=== PATIENT | male | born 1985 | race Caucasian/White ===

== ENCOUNTER 2018-01-15 18:31 | Emergency (ER) | payer SELFPAY ==
[2018-01-15 18:38] VITALS: BP 136/101
[2018-01-15] MEDS ORDERED: CEPHALEXIN 500 MG CAPSULE PO ONE (19:10)
[2018-01-15] MEDS ORDERED: SULFAMETHOXAZOLE/TRIMETHOPRIM 800-160 MG TABLET PO ONE (19:11)
[2018-01-15] MEDS ORDERED: OXYCODONE-ACETAMINOPHEN 5-325 MG TABLET PO ONE (19:11)
[2018-01-15] MEDS ORDERED: LIDOCAINE 2%/EPINEPHRINE INJ 20 ML VIAL INJ ONE (19:12)
--- NOTE | 2018-01-15 19:28 | ER Document Report ---
HPI - HPI Pain Level: 4 Context: Patient is a 32-year-old male presents emergency room with a chief complaint of left forearm swelling, redness and tenderness. Patient states that he is at work when he felt something burning on his left forearm and since then he has had localized erythema, swelling and tenderness. He denies any active drainage. Denies any history of MRSA. Denies any fevers or chills Past Medical History - Social History Smoking Status: Never Smoker Chew tobacco use (# tins/day): No Frequency of alcohol use: None Drug Abuse: None Family History: Reviewed & Not Pertinent Patient has suicidal ideation: No Patient has homicidal ideation: No Renal/ Medical History: Denies: Hx Peritoneal Dialysis - Immunizations Hx Diphtheria, Pertussis, Tetanus Vaccination: Yes Vertical Provider Document - CONSTITUTIONAL Agree With Documented VS: Yes Notes: PHYSICAL EXAM GENERAL: Alert, interacts well. EXTREMITIES: Moves all 4 extremities spontaneously. No edema, radial and dorsalis pedis pulses 2/4 bilaterally. No cyanosis. Political Consultant strength equal bilaterally NEUROLOGICAL: Alert and oriented x4. Normal speech. PSYCH: Normal affect, normal mood. SKIN: Warm, dry, normal turgor. Patient with a 2 cm fluctuant area with 7 cm surrounding cellulitis with tenderness and induration - INFECTION CONTROL TRAVEL OUTSIDE OF THE [place] IN LAST 30 DAYS: No Course - Re-evaluation Re-evalutation: 01/15/18 20:15 Patient is a 32-year-old male presents with an abscess of left forearm. I&D performed with approximately 5 cc of brown material packing placed. Patient to follow-up in 2-3 days for wound check and initiated on antibiotics. Given strict return precautions stable for discharge home - Vital Signs Vital signs: Temp Pulse Resp BP Pulse Ox 99.0 F 94 18 136/101 H 99 01/15/18 18:37 01/15/18 18:37 01/15/18 18:37 01/15/18 18:37 01/15/18 18:37 Procedures - Incision and Drainage Left Arm Type: Simple Anesthetic type: 1% Lidocaine mL's of anesthetic: 15 Blade size: 11 I&D procedure: Betadine prep applied, Iodoform packing placed, Sterile dressing applied Incision Method: Incision made by scalpel Amount/type of drainage: 5-10cc purulent drainage Discharge - Discharge Clinical Impression: Abscess Condition: Good Disposition: HOME, SELF-CARE Additional Instructions: Please return in 3 days for wound check. ABSCESS: You have an abscess (boil). This a pus-forming infection, usually due to staph. Some boils may be left to drain on their own, but most require lancing. From the time the tender lump first appears, it may be three or four days before the abscess is ready to malachi. Local heat and rest help at this stage of treatment. An antibiotic may prevent spread of the infection. Once the abscess is opened, packing may be placed into it. This is done so pus is not sealed inside by premature closure of the cavity. The packing will be removed at your follow-up visit or you may be advised to remove it yourself at home. Sometimes this packing must be replaced a few times during healing. The wound will heal with surprisingly little scar. Depending on the size and location of an abscess, healing can take one to four weeks. You may shower and wash the area around the incision site two or three times a day. Antibiotics may be prescribed, but are usually not necessary after an abscess has been drained. If you develop fever, chills, worsening pain, or increasing swelling in the area, call the doctor or return immediately. POST INCISION AND DRAINAGE: You have had an incision made to allow drainage of an abscess. The incision must remain open so that pus and debris can drain from the wound. If the abscess cavity is large, packing is placed. This keeps the tissues from collapsing and trapping pus inside, while the body shrinks the cavity. The packing may need to be replaced every day or two. The physician will instruct you on the packing. Keep a bulky dressing over the area. Replace it if it becomes saturated with blood or pus. Do not disturb the packing (if present). You may shower and cleanse the area with gentle soap and warm water two or three times a day. Local warmth may be soothing, and may promote faster healing. Return if you develop high fever or chills, or if you note spreading redness, increasing swelling, or increasing tenderness. MRSA CELLULITIS: You have an infection of your skin and underlying soft tissues called cellulitis. This is due to bacteria, which can enter through any break in the skin, or even through an irritated hair follicle. Untreated, cellulitis will usually worsen and may form an abscess which requires draining. Although many bacterial organisms can cause cellulitis and abscess formations, the most likely bacteria is Methicillin-Resistant Staph Aureus, or MRSA for short. Antibiotics are required. Usually, warm packs or warm soaks, and elevation of the infected area are recommended. You should start getting better within 24 to 36 hours. Most infections respond quickly to the right medication. Follow-up care is important, however, to check for abscess (boil) formation, unsuspected foreign body, or resistant infection. If you develop fever, chills, or if the area of infection is becoming rapidly more swollen or painful, call the doctor at once. ORAL NARCOTIC MEDICATION: You have been given a prescription for pain control. This medication is a narcotic. It's best taken with food, as nausea can result if taken on an empty stomach. Don't operate machinery or drive within six hours of taking this medication. Do not combine this medicine with alcohol, or with any medication which can cause sedation (such as cold tablets or sleeping pills) unless you get permission from the physician. Narcotics tend to cause constipation. If possible, drink plenty of fluids and eat a diet high in fiber and fruits. CEPHALEXIN: The antibiotic you've been prescribed is a member of the cephalosporin class. This type of antibiotic covers a wide variety of infections, including those of the skin, lungs, and urinary tract. It's useful for staph infections. This antibiotic is slightly similar to the penicillin family. In rare cases , a person who is allergic to penicillin will also be allergic to this medication. If you have had a severe allergic reaction to penicillin, and have not taken this antibiotic since that time, notify your doctor. Antibiotics which cover many germs ("broad spectrum" antibiotics) are more likely to cause diarrhea or "yeast" infections. Women prone to vaginal yeast problems may suffer an attack after taking this antibiotic. In infants, oral thrush (white spots "stuck" on the cheek) or yeast diaper rash may result. See your doctor if these problems occur. Call at once if you develop itching, hives , shortness of breath, or lightheadedness. TRIMETHOPRIM-SULFA: You have been given a prescription for trimethoprim-sulfa (TMS, Septra, Bactrim). This is a combination antibiotic of the sulfa class, often used for urinary tract infections, middle ear infections, bronchitis, shigella intestinal infection, and Pneumocystis pneumonia. TMS is usually well-tolerated. Occasional side effects include nausea and decreased appetite. Septra is not recommended for infants less than two months of age. Do not take this medication if you have experienced severe side effects or allergy to sulfa medicine. You should stop this medicine at once and contact your physician if you develop any rash, joint pain, shortness of breath, bruising, or jaundice ( yellow color in the skin), or if you develop any other new or unusual symptoms. FOLLOW-UP CARE: Most simple abscesses will not require a follow up visit. If you had packing placed in the abscess, remove it as instructed by the physician. If you have been referred to a physician for follow-up care, call the physicians office for an appointment as you were instructed or within the next two days. If you experience worsening or a significant change in your symptoms, return to the Emergency Department at any time for re-evaluation. Prescriptions: Cephalexin Monohydrate [Keflex 500 mg Capsule] 500 mg PO QID #20 capsule Oxycodone HCl/Acetaminophen [Percocet 5-325 mg Tablet] 1 - 2 tab PO Q4H PRN #10 tablet PRN Reason: Sulfamethoxazole/Trimethoprim [Bactrim Ds Tablet] 1 each PO BID #10 tablet Referrals: LEROY PERDUE MD [ACTIVE STAFF] - Follow up as needed
== END 2018-01-15 20:25 | disposition home or self-care (01) ==
LOC: ER 18:31
DX: L02.414 Cutaneous abscess of left upper limb (principal); L03.90 Cellulitis, unspecified
CPT/HCPCS: 99283; 87070; 87205; 87075; 87077; 87186; 10060; A6266; J3490

== ENCOUNTER 2019-10-18 15:16 | Inpatient (IN) | payer SELFPAY ==
[2019-10-18 15:21] VITALS: BP 167/87
[2019-10-18] MEDS ORDERED: KETOROLAC TROMETHAMINE INJ/PF 30 MG/1 ML SDV IV ONE (15:29)
[2019-10-18] MEDS ORDERED: CLINDAMYCIN 900 MG/D5W RTU 900 MG/50 ML RTUPB IV ONE (15:29)
--- NOTE | 2019-10-18 15:31 | ER Document Report ---
ED Medical Screen (RME) - General Chief Complaint: Arm Problem Stated Complaint: POSSIBLE SPIDER BITE - RIGHT ARM Time Seen by Provider: 10/18/19 15:23 Notes: HPI: 34-year-old male who is otherwise healthy presenting for evaluation of swelling of the right proximal forearm over the last 10 days. Patient states it initially started as a small bite, he went to his primary care provider and was placed on Bactrim 1 pill twice daily which he had taken over the last week with some improvement in the redness but over the last 3 to 4 days the area has progressively become much more swollen to the point that he is having difficulty straightening the right arm. Has had chills and low-grade fevers. I have greeted and performed a rapid initial assessment of this patient. A comprehensive ED assessment and evaluation of the patient, analysis of test results and completion of the medical decision making process will be conducted by additional ED providers PHYSICAL EXAMINATION: GENERAL: Well-appearing, well-nourished and in moderate acute distress. HEAD: Atraumatic, normocephalic. EYES: sclera anicteric, conjunctiva are normal. ENT: Moist mucous membranes. NECK: Normal range of motion LUNGS: Normal work of breathing, clear to auscultation HEART: 2+ radial pulses bilaterally, regular rate and rhythm ABD: limited by positioning for exam in triage. EXTREMITIES: There is significant edema to the proximal right forearm with induration and overlying erythema measuring approximately 8 cm in diameter. Patient with difficulty fully extending the right arm at the elbow. NEUROLOGICAL: No focal neurological deficits. Moves all extremities spontaneously and on command. PSYCH: Normal mood, normal affect. SKIN: Warm, Dry, normal turgor, no rashes or lesions noted. TRAVEL OUTSIDE OF THE [place] IN LAST 30 DAYS: No - Related Data Allergies/Adverse Reactions: No Known Allergies Allergy (Verified 10/18/19 15:21) Past Medical History - Social History Chew tobacco use (# tins/day): No Frequency of alcohol use: None Drug Abuse: None Renal/ Medical History: Denies: Hx Peritoneal Dialysis - Immunizations Hx Diphtheria, Pertussis, Tetanus Vaccination: Yes Physical Exam - Vital signs Vitals: Temp Pulse Resp BP Pulse Ox 100.0 F 96 20 167/87 H 96 10/18/19 15:20 10/18/19 15:20 03/07/20 15:20 10/18/19 15:20 10/18/19 15:20 Course - Vital Signs Vital signs: Temp Pulse Resp BP Pulse Ox 100.0 F 96 20 167/87 H 96 10/18/19 15:20 10/18/19 15:20 10/18/19 15:20 10/18/19 15:20 10/18/19 15:20
--- NOTE | 2019-10-18 16:05 | RADIOLOGY REPORT (SQ) ---
EXAM DESCRIPTION: U/S EXTREMITY NONVASCULAR LTD COMPLETED DATE/TIME: 10/18/2019 3:57 pm REASON FOR STUDY: eval for fluid collection right prox forearm/elbow COMPARISON: None. TECHNIQUE: Dynamic and static grayscale images acquired of the localized site of clinical concern an d recorded on PACS. Additional selected color Doppler and spectral images recorded. SITE OF CONCERN: Right forearm \ LIMITATIONS: None. FINDINGS: SKIN AND SUBCUTANEOUS TISSUES: Marked interstitial edema and soft tissue swelling. No foc al fluid collection. DEEP SOFT TISSUES/MUSCLES: No masses. No fluid collections. No edema. VASCULAR: No increased or decreased vascularity. No occlusions. OTHER: No other significant finding. IMPRESSION: Edema. No focal fluid collection. TECHNICAL DOCUMENTATION: JOB ID: [id number] 2010 [employer]- All Rights Reserved Reading location - IP/workstation name: [email or web address]
--- NOTE | 2019-10-18 16:16 | RADIOLOGY REPORT (SQ) ---
EXAM DESCRIPTION: ELBOW RIGHT AP/LAT COMPLETED DATE/TIME: 10/18/2019 4:05 pm REASON FOR STUDY: eval for hardware/infection COMPARISON: None. EXAM PARAMETERS: NUMBER OF VIEWS: Three views. TECHNIQUE: AP and lateral radiographic images acquired of the right elbow. LIMITATIONS: None. FINDINGS: MINERALIZATION: Normal. BONES: No acute fracture or dislocation. No worrisome bone lesions. JOINTS: No effusion. SOFT TISSUES: Diffuse soft tissue swelling. No radiopaque foreign body. OTHER: No other significant finding. IMPRESSION: NO FRACTURE.Diffuse soft tissue swelling. No radiopaque foreign body. TECHNICAL DOCUMENTATION: JOB ID: [id number] [place]-72 2010 [employer]- All Rights Reserved Reading location - IP/workstation name: [email or web address]
[2019-10-18 16:19] LABS: ANION GAP 16 (5-19); BLOOD UREA NITROGEN 12 mg/dL (7-20); CARBON DIOXIDE 27 mmol/L (22-30); CHLORIDE 97 mmol/L (98-107); GLUCOSE 120 mg/dL (75-110); POTASSIUM 4.1 mmol/L (3.6-5.0)
[2019-10-18 16:36] LABS: HEMATOCRIT 39.1 % (37.9-51.0); HEMOGLOBIN 13.1 g/dL (13.5-17.0); MEAN CORPUSCULAR HGB CONC 33.4 g/dL (32.0-36.0); MEAN CORPUSCULAR VOLUME 87 fl (80-97); PLATELET COUNT 328 10^3/uL (150-450); RED BLOOD COUNT 4.51 10^6/uL (4.35-5.55); RED CELL DISTRIBUTION WIDTH 14.2 % (11.5-14.0); WHITE BLOOD COUNT 10.6 10^3/uL (4.0-10.5)
[2019-10-18 17:04] LABS: ABSOLUTE LYMPHOCYTES# (MANUAL) 1.8 10^3/uL (0.5-4.7); ABSOLUTE MONOCYTES # (MANUAL) 0.8 10^3/uL (0.1-1.4); ANISOCYTOSIS SLIGHT; BAND NEUTROPHILS % (MANUAL) 2 % (3-5); BASOPHILS % (MANUAL) 0 % (0-2); EOSINOPHILS % (MANUAL) 3 % (0-6); LYMPHOCYTES % (MANUAL) 17 % (13-45); MONOCYTES % (MANUAL) 8 % (3-13); OVALOCYTES SLIGHT; PLATELET COMMENT ADEQUATE; PLATELET LARGE PRESENT; POIKILOCYTOSIS SLIGHT; SEGMENTED NEUTROPHILS % (MAN) 70 % (42-78); TOTAL CELLS COUNTED 100
[2019-10-18] MEDS ORDERED: ACETAMINOPHEN 325 MG TABLET PO ONE (17:28)
--- NOTE | 2019-10-18 17:28 | ER Document Report ---
ED Extremity Problem, Upper - General Chief Complaint: Arm Problem Stated Complaint: POSSIBLE SPIDER BITE - RIGHT ARM Time Seen by Provider: 10/18/19 16:48 Mode of Arrival: Ambulatory Information source: Patient Notes: Patient presents with right forearm tenderness pain and swelling. Patient states that the arm has been painful and swollen for the past 14 days. Patient states that he was seen at an urgent care 5 days ago and given a shot of Rocephin a prescription of Bactrim and a prescription for prednisone. Patient states that area of redness did extend to the lower upper arm but has since improved since starting the antibiotics. Patient states today he developed chills and low-grade fever which prompted his visit here. Patient denies any history of MRSA. Patient denies any history of IV drug use. Patient denies any cat bites. TRAVEL OUTSIDE OF THE [place] IN LAST 30 DAYS: No - HPI Patient complains to provider of: Right, Forearm Onset: Other - 2 wks Quality of pain: Sharp Pain Level: 5 Context: Insect bite - possible Associated symptoms: Fever - low grade, Sweating. denies: Nausea, Vomiting Exacerbated by: Movement Relieved by: Nothing Similar symptoms previously: Yes Recently seen / treated by doctor: Yes - Related Data Allergies/Adverse Reactions: No Known Allergies Allergy (Verified 10/18/19 15:55) Past Medical History - General Information source: Patient - Social History Smoking Status: Never Smoker Chew tobacco use (# tins/day): No Frequency of alcohol use: None Drug Abuse: None Occupation: self employed Lives with: Family Family History: Reviewed & Not Pertinent Patient has suicidal ideation: No Patient has homicidal ideation: No - Medical History Medical History: Negative Renal/ Medical History: Denies: Hx Peritoneal Dialysis Past Surgical History: Reports: Hx Orthopedic Surgery - Immunizations Hx Diphtheria, Pertussis, Tetanus Vaccination: Yes Review of Systems - Review of Systems Constitutional: Chills, Diaphoresis, Fever EENT: No symptoms reported Cardiovascular: No symptoms reported. denies: Chest pain Respiratory: No symptoms reported Gastrointestinal: No symptoms reported. denies: Nausea, Vomiting Genitourinary: No symptoms reported Male Genitourinary: No symptoms reported Musculoskeletal: Muscle pain - R forearm Skin: Other - Erythema to right forearm Hematologic/Lymphatic: No symptoms reported Neurological/Psychological: No symptoms reported Physical Exam - Vital signs Vitals: Temp Pulse Resp BP Pulse Ox 100.0 F 96 20 167/87 H 96 10/18/19 15:20 10/18/19 15:20 10/18/19 15:20 10/18/19 15:20 10/18/19 15:20 - General General appearance: Appears well, Alert In distress: Mild - HEENT Head: Normocephalic, Atraumatic Eyes: Normal Conjunctiva: Normal Nasal: Normal Mouth/Lips: Normal Mucous membranes: Normal Neck: Normal, Supple - Respiratory Respiratory status: No respiratory distress Chest status: Nontender Breath sounds: Normal. No: Rales, Rhonchi, Stridor, Wheezing Chest palpation: Normal - Cardiovascular Rhythm: Regular Heart sounds: S1 appreciated, S2 appreciated Pulses: Normal: Radial - Back Back: Normal - Extremities General upper extremity: Tender - Tenderness to right proximal forearm General lower extremity: Normal inspection, Normal strength Shoulder: Normal, Nontender Arm: Normal, Nontender Elbow: Tender, Limited ROM Forearm: Tender - Patient with tenderness to proximal third of right forearm with overlying erythema and induration to the volar aspect of the forearm. Patient does have 2 skin irregularities with scaling skin to the proximal right forearm Wrist: Normal, Nontender Hand: Normal, Nontender - Neurological Neuro grossly intact: Yes Cognition: Normal [place] Coma Scale Eye Opening: Spontaneous [place] Coma Scale Verbal: Oriented [place] Coma Scale Motor: Obeys Commands Akhil Coma Scale Total: 15 - Psychological Associated symptoms: Normal affect, Normal mood - Skin Skin Temperature: Warm Skin Moisture: Diaphoretic Skin Color: Erythema - right forearm Location of irregularity: Extremities Character of irregularity: Erythematous Irregularity with: Swelling, Tenderness, Warmth, Induration Course - Re-evaluation Re-evalutation: 10/18/19 17:[address] Hardy, Dr. Hardy to bedside for examination. Does not recommend incision and drainage at this time as he feels this is more consistent with cellulitis versus a drainable abscess, Dr. Hardy does recommend IV antibiotics. Agrees with plan to consult with hospitalist for admission at this time. 10/18/19 17:31 Attempted consult with hospitalist, no reply, will attempt to call again. 10/18/19 17:41 Spoke with COCO Lizarraga who recommends consultation with Dr. Figueredo. Call placed to Dr. Figueredo, no reply, will attempt again 03/07/20 17:44 [facility] Day called stating that he will come and evaluate patient. - Vital Signs Vital signs: Temp Pulse Resp BP Pulse Ox 100.0 F 96 20 167/87 H 96 10/18/19 15:20 10/18/19 15:20 10/18/19 15:20 10/18/19 15:20 10/18/19 15:20 - Laboratory Result Diagrams: 10/18/19 15:40 10/18/19 15:40 Laboratory results interpreted by me: 10/18/19 10/18/19 15:40 15:40 WBC 10.6 H Hgb 13.1 L RDW 14.2 H Band Neutrophils % 2 L Chloride 97 L Glucose 120 H 10/18/19 18:17 Labs- Entire Visit 10/18/19 10/18/19 15:40 15:40 WBC 10.6 H RBC 4.51 Hgb 13.1 L Hct 39.1 MCV 87 MCH 29.0 MCHC 33.4 RDW 14.2 H Plt Count 328 Lymph % (Auto) Not Reportable [place] % (Auto) Not Reportable Eos % (Auto) Not Reportable Baso % (Auto) Not Reportable Absolute Neuts (auto) Not Reportable Absolute Lymphs (auto) Not Reportable Absolute Monos (auto) Not Reportable Absolute Eos (auto) Not Reportable Absolute Basos (auto) Not Reportable Total Counted 100 Seg Neutrophils % Not Reportable Seg Neuts % (Manual) 70 Band Neutrophils % 2 L Lymphocytes % (Manual) 17 Monocytes % (Manual) 8 Eosinophils % (Manual) 3 Basophils % (Manual) 0 Abs Neuts (Manual) 7.6 Abs Lymphs (Manual) 1.8 Abs Monocytes (Manual) 0.8 Absolute Eos (Manual) 0.3 Abs Basophils (Manual) 0.0 Large Platelets PRESENT Platelet Comment ADEQUATE Poikilocytosis SLIGHT Anisocytosis SLIGHT Ovalocytes SLIGHT Sodium 140.0 Potassium 4.1 Chloride 97 L Carbon Dioxide 27 Anion Gap 16 BUN 12 Creatinine 0.81 Est GFR ( Amer) > 60 Est GFR (MDRD) Non-Af > 60 Glucose 120 H Calcium 10.0 - Diagnostic Test Radiology reviewed: Reports reviewed Discharge - Discharge Clinical Impression: Right arm cellulitis Condition: Stable Disposition: ADMITTED INPATIENT Admitting Provider: Leonel (Hospitalist) Unit Admitted: Medical Floor
[2019-10-18] MEDS ORDERED: MAG HYDROX/AL HYDROX/SIMETH SUSP 30 ML UDCUP PO PRN (18:03)
[2019-10-18] MEDS ORDERED: OXYCODONE-ACETAMINOPHEN 5-325 MG TABLET PO PRN (18:03)
[2019-10-18] MEDS ORDERED: ACETAMINOPHEN 325 MG TABLET PO PRN (18:03)
[2019-10-18] MEDS ORDERED: ONDANSETRON HCL INJ/PF 4 MG/2 ML SDV IV PRN (18:03)
[2019-10-18] MEDS ORDERED: TEMAZEPAM 7.5 MG CAPSULE PO PRN (18:03)
[2019-10-18] MEDS ORDERED: ONDANSETRON 4 MG TAB.RAPDIS PO PRN (18:03)
--- NOTE | 2019-10-18 18:28 | PDOC H&P ---
History of Present Illness Admission Date/PCP: 10/18/2019 History of Present Illness: JENNA MARTINEZ is a 34 year old male Past Medical History Medical History: None Past Surgical History Past Surgical History: Reports: Orthopedic Surgery Social History Lives with: Family Smoking Status: Never Smoker Electronic Cigarette use?: No - Advance Directive Resuscitation Status: Full Code Family History Family History: Reviewed & Not Pertinent Parental Family History Reviewed: No Children Family History Reviewed: No Sibling(s) Family History Reviewed.: No Medication/Allergy Home Medications: Penicillin V Potassium [Penicillin Vk 500 mg Tablet] 500 mg PO QID #40 tablet 11/14/14 Cephalexin Monohydrate [Keflex 500 mg Capsule] 500 mg PO QID #20 capsule 01/15/18 Oxycodone HCl/Acetaminophen [Percocet 5-325 mg Tablet] 1 - 2 tab PO Q4H PRN #10 tablet 01/15/18 Sulfamethoxazole/Trimethoprim [Bactrim Ds Tablet] 1 each PO BID #10 tablet 01/15/18 Allergies/Adverse Reactions: No Known Allergies Allergy (Verified 10/18/19 15:55) Review of Systems Constitutional: PRESENT: as per HPI, chills, fever(s) Cardiovascular: ABSENT: chest pain, dyspnea on exertion, edema, orthropnea, palpitations Respiratory: ABSENT: cough, hemoptysis Gastrointestinal: ABSENT: abdominal pain, constipation, diarrhea, hematemesis, hematochezia, nausea, vomiting Integumentary: PRESENT: other - Redness to the right elbow Neurological: ABSENT: abnormal gait, abnormal speech, confusion, dizziness, focal weakness, syncope Psychiatric: ABSENT: anxiety, depression, homidical ideation, suicidal ideation Physical Exam Vital Signs: Temp Pulse Resp BP Pulse Ox 100.0 F 96 20 167/87 H 96 10/18/19 15:20 10/18/19 15:20 10/18/19 15:20 10/18/19 15:20 10/18/19 15:20 Intake & Output 10/17/19 10/18/19 10/19/19 06:59 06:59 07:59 Intake Total 50 Balance 50 Weight 118 kg General appearance: PRESENT: no acute distress Respiratory exam: PRESENT: clear to auscultation aaron. ABSENT: rales, rhonchi, wheezes Cardiovascular exam: PRESENT: RRR. ABSENT: diastolic murmur, rubs, systolic murmur Pulses: PRESENT: normal radial pulses Extremities exam: PRESENT: full ROM, tenderness Neurological exam: PRESENT: alert, awake, oriented to person, oriented to place, oriented to time, oriented to situation, CN II-XII grossly intact. ABSENT: motor sensory deficit Skin exam: PRESENT: erythema, other - Soft tissue swelling over the right elbow to include the brachial radialis muscle and slightly up into the biceps region. Redness covers this area as well, though the patient reports since being on the Bactrim and getting the shot of Rocephin it is less red and less swollen Results Laboratory Results: 10/18/19 15:40 10/18/19 15:40 10/18/19 10/18/19 15:40 15:40 WBC 10.6 H RBC 4.51 Hgb 13.1 L Hct 39.1 MCV 87 MCH 29.0 MCHC 33.4 RDW 14.2 H Plt Count 328 Seg Neutrophils % Not Reportable Sodium 140.0 Potassium 4.1 Chloride 97 L Carbon Dioxide 27 Anion Gap 16 BUN 12 Creatinine 0.81 Est GFR ( Amer) > 60 Glucose 120 H Calcium 10.0 Impressions: Extremity Ultrasound 10/18/19 15:26 IMPRESSION: Edema. No focal fluid collection. Elbow X-Ray 10/18/19 15:28 IMPRESSION: NO FRACTURE.Diffuse soft tissue swelling. No radiopaque foreign body. Assessment and Plan - Diagnosis (1) Right arm cellulitis Is this a current diagnosis for this admission?: Yes - Plan Summary Summary: Patient will be on clindamycin 600 mg IV every 8 hours, also p.o. Percocet for pain. If needed IV morphine will be ordered but only as needed Will probably take several days for this to improve to where he can to home on p.o. clindamycin Patient is medically stable his was in the room during the exam all other questions were answered Patient is otherwise healthy with no other comorbidities - Time Time Spent with patient: 35 or more minutes
[2019-10-18] MEDS ORDERED: OXYCODONE-ACETAMINOPHEN 5-325 MG TABLET PO ONE (18:30)
--- NOTE | 2019-10-18 18:41 | Left Against Medical Advice ---
Against Medical Advice Admission Date/Time: Primary Care Provider: Date of Patient Emigration: 10/18/19 - Diagnosis: (1) Right arm cellulitis Is this a current diagnosis for this admission?: Yes - Summary: Summary: Please see Admission and Progress Notes as well. JENNA MARTINEZ is a 34 M, who LEFT AGAINST MEDICAL ADVICE. The Patient was admitted on 10/18/2019. I was literally in the process of dictating his history and physical when the emergency room called and states that the patient has decided to leave AMA. ER provider is going to give him a prescription for clindamycin. Told the patient when I did my history that this would definitely require IV antibiotics since he failed treatment as an outpatient. was in the room as a witness. Patient is a self-pay and it may have been the fact of the financial burden that has made him change his mind. Any rate the ER provider explained to him that this could be life-threatening if he left AMA. Patient has decided to leave AMA anyway.
[2019-10-18] MEDS ORDERED: CLINDAMYCIN 600 MG/D5W RTU 600 MG/50 ML RTUPB IV SCH (22:00)
[2019-10-19] MEDS ORDERED: PANTOPRAZOLE SODIUM 20 MG TABLET.DR PO SCH (06:00)
[2019-10-19] MEDS ORDERED: DOCUSATE SODIUM 100 MG CAPSULE PO SCH (10:00)
[2019-10-19] MEDS ORDERED: ENOXAPARIN SODIUM INJ 40 MG/0.4 ML DISP.SYRIN SUBCUT SCH (10:00)
== END 2019-10-18 18:38 | disposition left against medical advice (07) | DRG 603 ==
LOC: ER 15:16 → EH 18:25
PROVIDERS: ADMIT Internal Medicine; ATTEND Internal Medicine
DX: L03.113 Cellulitis of right upper limb (principal); W57.XXXA Bitten or stung by nonvenomous insect and other nonvenomous arthropods, initial encounter; Y93.89 Activity, other specified; Y92.018 Other place in single-family (private) house as the place of occurrence of the external cause
CPT/HCPCS: 36415; 76882; 80048; 85025; 85652; 86140; 87040; 96365; 96375; 99284; J1885; J3490